=== PATIENT | female | born 1975 | race Caucasian/White ===

== ENCOUNTER 2016-04-16 17:29 | Emergency (ER) | payer MEDICAID ==
--- NOTE | 2016-04-16 17:47 | ER Document Report ---
ED Medical Screen (RME) - General Stated Complaint: MED REFILL Notes: Patient presents for medication refill of Dilantin she does have an appointment with the attending on the TRAVEL OUTSIDE OF THE [place] 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
--- NOTE | 2016-04-16 18:22 | ER Document Report ---
ED General - General Chief Complaint: Medication Refill Stated Complaint: MED REFILL Time seen by provider: 18:17 TRAVEL OUTSIDE OF THE [place] IN LAST 30 DAYS: No - HPI Patient complains to provider of: med refill Onset: Yesterday - pt rqan out of dilantin -- last dose was last night. Next appt at [facility] not until 04/18 - Related Data Allergies/Adverse Reactions: No Known Allergies Allergy (Verified 02/13/13 19:30) Past Medical History - General Information source: Patient - Social History Smoking Status: Unknown if Ever Smoked Cigarette use (# per day): No Chew tobacco use (# tins/day): No Smoking Education Provided: No Family History: Reviewed & Not Pertinent Patient has suicidal ideation: No Patient has homicidal ideation: No Neurological Medical History: Reports: Hx Cerebrovascular Accident - Carotid Artery Blockage- Dec 2014 Renal/ Medical History: Denies: Hx Peritoneal Dialysis Musculoskeltal Medical History: Reports Hx Musculoskeletal Deformity - 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 Psychiatric Medical History: Reports: Hx Anxiety Past Surgical History: Reports: Hx Cholecystectomy - Immunizations Immunizations up to date: Yes Hx Diphtheria, Pertussis, Tetanus Vaccination: Yes Review of Systems - Review of Systems Constitutional: No symptoms reported EENT: No symptoms reported Cardiovascular: No symptoms reported Respiratory: No symptoms reported Gastrointestinal: No symptoms reported Musculoskeletal: No symptoms reported Skin: No symptoms reported -: Yes All other systems reviewed and negative Physical Exam - Vital signs Vitals: Temp Pulse Resp BP Pulse Ox 98.4 F 99 18 129/83 H 99 04/16/16 17:44 04/16/16 17:44 04/16/16 17:44 04/16/16 17:44 04/16/16 17:44 - General General appearance: Appears well In distress: None - Respiratory Respiratory status: No respiratory distress Breath sounds: Normal - Cardiovascular Rhythm: Regular Heart sounds: Normal auscultation - Neurological Neuro grossly intact: Yes Cognition: Normal Orientation: AAOx4 Speech: Normal Motor strength normal: LUE, RUE, LLE, RLE Sensory: Normal Course - Vital Signs Vital signs: Temp Pulse Resp BP Pulse Ox 98.4 F 99 18 129/83 H 99 04/16/16 17:44 04/16/16 17:44 04/16/16 17:44 04/16/16 17:44 04/16/16 17:44 Discharge - Discharge Clinical Impression: Medication refill Condition: Stable Disposition: HOME, SELF-CARE Additional Instructions: reest, take meds as prescribed, return if worse Prescriptions: Phenytoin Sodium Extended [Dilantin 100 mg Capsule.er] 100 mg PO Q8 #90 capsule Referrals: ELIDA GODOY MD [ACTIVE STAFF] - Follow up as needed
[2016-04-16 19:11] VITALS: BP 132/78
== END 2016-04-16 19:11 | disposition home or self-care (01) ==
LOC: ER 17:29
DX: Z76.0 Encounter for issue of repeat prescription (principal); F41.9 Anxiety disorder, unspecified; Z86.73 Personal history of transient ischemic attack (TIA), and cerebral infarction without residual deficits
CPT/HCPCS: 99281

== ENCOUNTER 2016-06-05 15:28 | Inpatient (IN) | payer MEDICAID ==
--- NOTE | 2016-06-05 16:15 | ER Document Report ---
ED Medical Screen (RME) - General Stated Complaint: BLOOD ISSUE Time seen by provider: 16:13 Mode of Arrival: Wheelchair Information source: Patient Notes: 41-year-old female with a history of CVA came to the emergency room because of a hemoglobin that was drawn at her primary care doctor Dr. Tam on 06-02. Her hemoglobin was 5.5. She has been having lightheadedness for several weeks. She has severe menorrhagia which has caused anemia in the past and she also takes eloquis.. I have greeted and performed a rapid initial assessment of this patient. A comprehensive ED assessment, evaluation of the patient, analysis of test results , and completion of the medical decision making process will be conducted by additional ED providers. TRAVEL OUTSIDE OF THE [place] 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
[2016-06-05] MEDS ORDERED: NORMAL SALINE 250 ML IV PRN ×3 (16:16→18:46)
[2016-06-05 16:48] LABS: HEMATOCRIT 20.1 % (36.0-47.0); HGB HCT DIFFERENCE -2.4; MEAN CORPUSCULAR HGB CONC 29.3 g/dL (32.0-36.0); MEAN CORPUSCULAR VOLUME 75 fl (80-97); RED BLOOD COUNT 2.67 10^6/uL (3.72-5.28); RED CELL DISTRIBUTION WIDTH 20.5 % (11.5-14.0); WHITE BLOOD COUNT 6.9 10^3/uL (4.0-10.5)
[2016-06-05 17:24] LABS: BASOPHILS % (MANUAL) 0 % (0-2); EOSINOPHILS % (MANUAL) 3 % (0-6); LYMPHOCYTES % (MANUAL) 26 % (13-45); NUCLEATED RED BLOOD CELLS 1 /100 WBC (0); TOTAL CELLS COUNTED 100
[2016-06-05 17:25] LABS: ANISOCYTOSIS 2+; HYPOCHROMASIA 3+; MICROCYTOSIS 2+
[2016-06-05 17:26] LABS: OVALOCYTES SLIGHT; POIKILOCYTOSIS SLIGHT; POLYCHROMASIA SLIGHT; TEAR DROP CELLS SLIGHT
[2016-06-05 17:29] LABS: HEMOGLOBIN 5.9 g/dL (12.0-15.5)
--- NOTE | 2016-06-05 18:30 | ER Document Report ---
ED General - General Chief Complaint: Anemia Stated Complaint: BLOOD ISSUE Mode of Arrival: Wheelchair Information source: Patient Notes: 41-year-old female on Eliquis presents with complaints of weakness requiring blood. Patient notes that she has been having heavy menses twice a month for 1 week each. Patient saw her primary care physician who noted that she was anemic and sent her in for transfusion TRAVEL OUTSIDE OF THE [place] IN LAST 30 DAYS: No - HPI Onset: Other Onset/Duration: Persistent Quality of pain: No pain Severity: Moderate Pain Level: Denies Associated symptoms: Weakness Exacerbated by: Denies Relieved by: Denies Similar symptoms previously: Yes Recently seen / treated by doctor: Yes - Related Data Allergies/Adverse Reactions: No Known Allergies Allergy (Verified 02/13/13 19:30) Past Medical History - General Information source: Patient - Social History Smoking Status: Current Every Day Smoker Cigarette use (# per day): Yes Chew tobacco use (# tins/day): No Smoking Education Provided: No Frequency of alcohol use: Social Drug Abuse: None Family History: Reviewed & Not Pertinent Patient has suicidal ideation: No Patient has homicidal ideation: No Neurological Medical History: Reports: Hx Cerebrovascular Accident - Carotid Artery Blockage- Dec 2014 Renal/ Medical History: Denies: Hx Peritoneal Dialysis Musculoskeltal Medical History: Reports Hx Musculoskeletal Deformity - 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 Denies recent illness. EENT: Denies eye, ear, throat, or mouth pain or symptoms. Denies nasal or sinus congestion or discharge. Denies throat, tongue, or mouth swelling or difficulty swallowing. CARDIOVASCULAR: Denies chest pain. Denies palpitations or racing or irregular heart beat. Denies ankle edema. RESPIRATORY: Denies cough, cold, or chest congestion. Denies shortness of breath, difficulty breathing, or wheezing. GASTROINTESTINAL: Denies abdominal pain or distention. Denies nausea, vomiting , or diarrhea. Denies blood in vomitus, stools, or per rectum. Denies black, tarry stools. Denies constipation. GENITOURINARY: Denies difficulty urinating, painful urination, burning, frequency, blood in urine, or discharge. FEMALE GENITOURINARY: Admits to having vaginal bleeding MUSCULOSKELETAL: Denies back or neck pain or stiffness. Denies joint pain or swelling. SKIN: Denies rash, lesions or sores. HEMATOLOGIC : Denies easy bruising or bleeding. LYMPHATIC: Denies swollen, enlarged glands. NEUROLOGICAL: Admits to weakness PSYCHIATRIC: Denies anxiety or stress. Denies depression, suicidal ideation, or homicidal ideation. ALL OTHER SYSTEMS REVIEWED AND NEGATIVE. Dictation was performed using [employer] voice recognition software PHYSICAL EXAMINATION: GENERAL: Well-appearing, well-nourished and in no acute distress. HEAD: Atraumatic, normocephalic. EYES: Pupils equal round and reactive to light, extraocular movements intact, conjunctiva are normal. ENT: Nares patent, oropharynx clear without exudates. Moist mucous membranes. NECK: Normal range of motion, supple without lymphadenopathy LUNGS: Breath sounds clear to auscultation bilaterally and equal. No wheezes rales or rhonchi. HEART: Regular rate and rhythm without murmurs ABDOMEN: Soft, nontender, nondistended abdomen. No guarding, no rebound. No masses appreciated. Female : deferred currently not bleeding Musculoskeletal: Normal range of motion, no pitting or edema. No cyanosis. NEUROLOGICAL: Cranial nerves grossly intact. Normal speech, normal gait. Normal sensory, motor exams PSYCH: Normal mood, normal affect. SKIN: Warm, Dry, normal turgor, no rashes or lesions noted. Physical Exam - Vital signs Vitals: Temp Pulse Resp BP Pulse Ox 98.0 F 92 20 108/52 L 100 06/05/16 15:56 06/05/16 15:56 06/05/16 15:56 06/05/16 15:56 06/05/16 15:56 Course - Re-evaluation Re-evalutation: 06/05/16 19:28 Patient's hemoglobin is 5.9, blood has been ordered for transfusion. Patient will be admitted to hospitalist service - Vital Signs Vital signs: Temp Pulse Resp BP Pulse Ox 98.6 F 87 16 109/66 100 06/05/16 19:19 06/05/16 19:19 06/05/16 19:19 06/05/16 19:19 06/05/16 19:19 - Laboratory Result Diagrams: 06/05/16 16:25 06/05/16 16:25 Laboratory results interpreted by me: 06/05/16 06/05/16 06/05/16 16:25 16:25 16:25 RBC 2.67 L Hgb 5.9 L Hct 20.1 L MCV 75 L MCH 22.0 L MCHC 29.3 L RDW 20.5 H Metamyelocytes % 1 H Retic Count (auto) Absolute Retic Chloride 108 H AST 11 L Crossmatch See Detail 06/05/16 16:25 RBC Hgb Hct MCV MCH MCHC RDW Metamyelocytes % Retic Count (auto) 5.38 H Absolute Retic 0.142 H Chloride AST Crossmatch Critical Care Note - Critical Care Note Total time excluding time spent on procedures (mins): 35 Comments: 35 minutes of critical care time spent in direct contact evaluating and reevaluating the patient, treating symptoms, reviewing labs and studies and speaking with family and consultants excluding any procedures Discharge - Discharge Clinical Impression: History of heavy vaginal bleeding Anemia Qualifiers: Anemia type: unspecified type Qualified Code(s): D64.9 - Anemia, unspecified Condition: Stable Disposition: ADMITTED OBSERVATION Admitting Provider: Hospitalist Unit Admitted: Telemetry
[2016-06-05] MEDS ORDERED: NORMAL SALINE 1000 ML 1,000 ML IV PRN (18:32)
[2016-06-05] MEDS ORDERED: ACETAMINOPHEN 325 MG TABLET PO PRN (18:32)
[2016-06-05] MEDS ORDERED: ONDANSETRON HCL INJ/PF 4 MG/2 ML SDV IV PRN (18:32)
[2016-06-05 19:00] LABS: ALANINE AMINOTRANSFERASE 12 U/L (9-52); ALBUMIN 3.9 g/dL (3.5-5.0); ALKALINE PHOSPHATASE 111 U/L (38-126); ANION GAP 12 (5-19); ASPARTATE AMINO TRANSFERASE 11 U/L (14-36); BILIRUBIN,TOTAL 0.3 mg/dL (0.2-1.3); BLOOD UREA NITROGEN 9 mg/dL (7-20); CALCIUM 9.3 mg/dL (8.4-10.2); CARBON DIOXIDE 22 mmol/L (22-30); CHLORIDE 108 mmol/L (98-107); CREATININE RESULT 0.77 mg/dL (0.52-1.25); GLUCOSE 85 mg/dL (75-110); POTASSIUM 4.5 mmol/L (3.6-5.0); SODIUM 142.3 mmol/L (137-145); TOTAL PROTEIN 7.1 g/dL (6.3-8.2)
[2016-06-05] MEDS ORDERED: CLONAZEPAM 1 MG TABLET PO PRN (19:31)
[2016-06-05] MEDS ORDERED: HYDROCODONE/ACETAMINOPHEN 5-325 MG TABLET PO PRN (19:33)
[2016-06-05] MEDS ORDERED: APIXABAN 5 MG TABLET PO SCH (19:45)
--- NOTE | 2016-06-05 19:49 | PDOC H&P ---
History of Present Illness Admission Date/PCP: 06/05/16 18:32 MARTINA HINES MD History of Present Illness: KEVIN RUCKER is a 41 year old female with past medical history of CVA, seizure disorder following CVA, alcoholism on Eliquis who presents to the emergency department with abnormal labs from her primary care office. Patient was found to have a hemoglobin of 5.9. She reports that since being on Eliquis that she has a menstrual cycle every 2 weeks. Patient has significant vaginal bleeding. She denies any hematochezia or melena. She denies any hematemesis. Patient denies any chest pain, shortness of breath. She is referred to hospital service for evaluation of anemia. Past Medical History Pulmonary Medical History: Reports: Chronic Obstructive Pulmonary Disease (COPD) Neurological Medical History: Reports: Ischemic CVA, Migraine Psychiatric Medical History: Reports: Alcohol Dependency Past Surgical History Past Surgical History: Reports: Cholecystectomy Social History Smoking Status: Current Every Day Smoker Cigarettes Packs Per Day: 1 Frequency of Alcohol Use: Heavy Hx Recreational Drug Use: No Hx Prescription Drug Abuse: No - Advance Directive Resuscitation Status: Full Code Family History Family History: Reviewed & Not Pertinent Parental Family History Reviewed: Yes Children Family History Reviewed: Yes Sibling(s) Family History Reviewed.: Yes Medication/Allergy Home Medications: Phenytoin Sodium Extended [Dilantin 100 mg Capsule.er] 300 mg PO QHS #45 capsule 04/01/16 Phenytoin Sodium Extended [Dilantin 100 mg Capsule.er] 100 mg PO Q8 #90 capsule 04/16/16 Allergies/Adverse Reactions: No Known Allergies Allergy (Verified 02/13/13 19:30) Review of Systems Constitutional: PRESENT: fatigue. ABSENT: chills, fever(s), headache(s), weight gain, weight loss Eyes: ABSENT: visual disturbances Ears: ABSENT: hearing changes Cardiovascular: ABSENT: chest pain, dyspnea on exertion, edema, orthropnea, palpitations Respiratory: ABSENT: cough, hemoptysis Gastrointestinal: ABSENT: abdominal pain, constipation, diarrhea, hematemesis, hematochezia, nausea, vomiting Genitourinary: ABSENT: dysuria, hematuria Musculoskeletal: ABSENT: joint swelling Integumentary: ABSENT: rash, wounds Neurological: ABSENT: abnormal gait, abnormal speech, confusion, dizziness, focal weakness, syncope Psychiatric: ABSENT: anxiety, depression, homidical ideation, suicidal ideation Endocrine: PRESENT: menstrual abnormalities. ABSENT: cold intolerance, heat intolerance, polydipsia, polyuria Hematologic/Lymphatic: ABSENT: easy bleeding, easy bruising Physical Exam Vital Signs: Temp Pulse Resp BP Pulse Ox 98.6 F 87 16 109/66 100 06/05/16 19:19 06/05/16 19:19 06/05/16 19:19 06/05/16 19:19 06/05/16 19:19 Intake & Output 06/04/16 06/05/16 06/06/16 06:59 06:59 06:59 Intake Total 0 Balance 0 General appearance: PRESENT: no acute distress, obese, well-developed Head exam: PRESENT: atraumatic, normocephalic Eye exam: PRESENT: conjunctiva pink, EOMI, PERRLA. ABSENT: scleral icterus Ear exam: PRESENT: normal external ear exam Mouth exam: PRESENT: moist, tongue midline Neck exam: ABSENT: JVD, lymphadenopathy, thyromegaly, tracheal deviation Respiratory exam: PRESENT: clear to auscultation teja, prolonged expiratory phas , symmetrical, unlabored. ABSENT: crackles, rales, rhonchi, tachypnea, wheezes Cardiovascular exam: PRESENT: RRR, +S1, +S2, tachycardia. ABSENT: diastolic murmur, gallop, rubs, systolic murmur Pulses: PRESENT: normal dorsalis pedis pul Vascular exam: PRESENT: normal capillary refill GI/Abdominal exam: PRESENT: normal bowel sounds, soft. ABSENT: distended, firm , guarding, mass, organolmegaly, rebound, rigid, tenderness Rectal exam: PRESENT: deferred Extremities exam: PRESENT: full ROM. ABSENT: calf tenderness, clubbing, pedal edema Neurological exam: PRESENT: alert, awake, oriented to person, oriented to place , oriented to time, oriented to situation, motor sensory deficit - Left-sided hemiplegia,. ABSENT: CN II-XII grossly intact - Left facial droop, left peripheral vision loss Psychiatric exam: PRESENT: appropriate affect, normal mood. ABSENT: homicidal ideation, suicidal ideation Skin exam: PRESENT: dry, intact, pallor, warm. ABSENT: cyanosis, rash Results Laboratory Results: 06/05/16 06/05/16 16:25 16:25 Hgb 5.9 L MCV 75 L Creatinine 0.77 Status: Imported from PACS Assessment & Plan - Diagnosis (1) Anemia Qualifiers: Other causes of anemia: acute posthemorrhagic Qualified Code(s): D64.9 - Anemia, unspecified Is this a current diagnosis for this admission?: YesPlan: Patient with anemia likely secondary to chronic blood loss from her menstrual cycle on blood thinner. Will obtain iron studies and TSH. Will transfuse patient 4 units of packed red blood cells. Continue to monitor. (2) Perimenopausal menorrhagia Is this a current diagnosis for this admission?: YesPlan: Patient reports having 2 menstrual cycles monthly each lasting a week. Patient has heavy flow secondary to current Eliquis use. Have consulted Dr. Alba [facility]. Will check TSH. (3) Hyperlipidemia Qualifiers: Hyperlipidemia type: unspecified Qualified Code(s): E78.5 - Hyperlipidemia, unspecified Is this a current diagnosis for this admission?: YesPlan: Continue Lipitor (4) Tobacco abuse Is this a current diagnosis for this admission?: YesPlan: Patient has been counseled for more than 2 minutes on smoking cessation. Nicotine patch when necessary (5) Seizure disorder Is this a current diagnosis for this admission?: YesPlan: Place patient on Dilantin 300 mg by mouth daily at bedtime. She reports no current seizures. Last seizure was on New Year's Tamiko. (6) Cerebral atherosclerosis Is this a current diagnosis for this admission?: YesPlan: Patient has residual left-sided weakness. Patient is currently on Lipitor, Eliquis. - Time Time Spent: 50 to 70 Minutes Medications reviewed and adjusted accordingly: Yes Anticipated discharge: Home Within: within 48 hours - Inpatient Certification Based on my medical assessment, after consideration of the patient's comorbidities, presenting symptoms, or acuity I expect that the services needed warrant INPATIENT care.: Yes I certify that my determination is in accordance with my understanding of Medicare's requirements for reasonable and necessary INPATIENT services [42 CFR 412.3e].: Yes Medical Necessity: Need Close Monitoring Due to Risk of Patient Decompensation, Risk of Complication if Not Cared For in Hospital Post Hospital Care: D/C Lab Asst Documentation
[2016-06-05 20:27] LABS: FOLATE 4.91 ng/mL (>2.76)
[2016-06-05] MEDS ORDERED: NICOTINE 21 MG/24 HR PATCH.TD24 TD ONE (20:30)
[2016-06-05 21:00] LABS: PARTIAL THROMBOPLASTIN TIME 24.9 SEC (23.5-35.8); PROTHROMBIN TIME 13.1 SEC (11.4-15.4)
[2016-06-05] MEDS ORDERED: PHENYTOIN SODIUM EXTENDED 100 MG CAPSULE PO SCH (22:00)
[2016-06-05] MEDS ORDERED: ATORVASTATIN CALCIUM 40 MG TABLET PO SCH (22:00)
[2016-06-05] MEDS ORDERED: LORAZEPAM INJ 2 MG/1 ML VIAL IV PRN (22:46)
[2016-06-05] MEDS ORDERED: THIAMINE HCL 100 MG, FOLIC ACID 1 MG in NORMAL SALINE 50 ML IV SCH (23:00)
[2016-06-05] MEDS ORDERED: THIAMINE HCL INJ 200 MG/2 ML VIAL ONE (23:41)
[2016-06-05] MEDS ORDERED: FOLIC ACID INJ 5 MG/1 ML 10 ML VIAL ONE (23:41)
[2016-06-06] MEDS ORDERED: (PENDING PHARMACY ID) (Gabapentin [Neurontin] 1,800 MG) PO SCH (01:45)
[2016-06-06] MEDS ORDERED: INFLUENZA ADLT QUAD (36MOS+) 2016-17 VAC 0.5 ML SYR IM PRN (02:51)
[2016-06-06] MEDS ORDERED: LANSOPRAZOLE 15 MG TAB.RAP.DR PO SCH (06:00)
[2016-06-06] MEDS ORDERED: GABAPENTIN 300 MG CAPSULE PO ONE (07:15)
--- NOTE | 2016-06-06 07:29 | PDOC CONSULTATION ---
Consultation Consult Date: 06/05/16 Attending physician:: TAMIKO BLANKENSHIP Consult reason:: Menometrorrhagia, anemia of chronic blood loss History of Present Illness Admission Date/PCP: 06/05/16 18:32 MARTINA HINES MD Patient complains of: fatigue, abnormal labs in PCM office History of Present Illness: KEVIN RUCKER is a 41 year old female (H/o x 3, SAB x 1, EAB x 1) with past medical history of CVA (12/2014), seizure disorder following CVA, carotid artery blockage (pt reports that she is supposed to have a stent but they could not do it yet) and alcoholism on Eliquis who presents to the emergency department with abnormal labs from her primary care office. Patient was found to have a hemoglobin of 5.9 and was admitted to the Hospitalist service and initiated on transfusion of 4 units of PRBCs. She reports that since being on Eliquis in 2014 (was on warfarin and changed to Eliquis) that she has a menstrual cycle every 2 weeks with flooding and clots. Patient has significant vaginal bleeding. She denies any hematochezia or melena. She denies any hematemesis. Patient denies any chest pain, shortness of breath. She was seen approx 8-10 months ago for consultation with Dr. hirsch's office for the same but has not followed up with that office and is unaware of an established plan for her JAMMER HOOKER issues. She is currently sexually active with one partner and does not use condoms. He does not have a vasectomy and she is not using anything for contraception. She reoprts h/o possible fibroids in the past. REviewed with pt recommendations for contraception as she has mutiple comorbidities that would cause her to be very high risk. Pt given office contact info to f/u in the office. Past Medical History Pulmonary Medical History: Reports: Chronic Obstructive Pulmonary Disease (COPD) Neurological Medical History: Reports: Ischemic CVA, Migraine Psychiatric Medical History: Reports: Alcohol Dependency Social History Smoking Status: Current Every Day Smoker Cigarettes Packs Per Day: 1 Frequency of Alcohol Use: Heavy Hx Recreational Drug Use: No Hx Prescription Drug Abuse: No - Advance Directive Resuscitation Status: Full Code Family History Family History: Reviewed & Not Pertinent Parental Family History Reviewed: No Children Family History Reviewed: NA Sibling(s) Family History Reviewed.: NA Medication/Allergy Home Medications: Phenytoin Sodium Extended [Dilantin 100 mg Capsule.er] 300 mg PO QHS #45 capsule 04/01/16 Apixaban [Eliquis 5 mg Tablet] 5 mg PO Q12 06/05/16 Atorvastatin Calcium [Lipitor 80 mg Tablet] 80 mg PO QHS 06/05/16 Clonazepam [Klonopin] 0.5 mg PO Q12HP PRN 06/05/16 Ferrous Sulfate [Iron] 325 mg PO TID 06/05/16 Fluoxetine HCl [Prozac 20 mg Capsule] 20 mg PO DAILY 06/05/16 Gabapentin [Neurontin] 1,800 mg PO QHS 06/05/16 Gabapentin [Neurontin] 600 mg PO QAM 06/05/16 Hydrocodone/Acetaminophen [[place] 5-325 mg Tablet] 1 tab PO Q6HP PRN 06/05/16 Allergies/Adverse Reactions: No Known Allergies Allergy (Verified 02/13/13 19:30) Review of Systems Constitutional: ABSENT: chills, fever(s), headache(s), weight gain, weight loss Cardiovascular: ABSENT: chest pain, dyspnea on exertion, edema, orthropnea, palpitations Gastrointestinal: ABSENT: abdominal pain, constipation, diarrhea, hematemesis, hematochezia, nausea, vomiting Genitourinary: ABSENT: dysuria, hematuria Musculoskeletal: ABSENT: joint swelling Integumentary: ABSENT: rash, wounds Neurological: ABSENT: abnormal gait, abnormal speech, confusion, dizziness, focal weakness, syncope Psychiatric: ABSENT: anxiety, depression, homidical ideation, suicidal ideation Endocrine: ABSENT: cold intolerance, heat intolerance, polydipsia, polyuria Hematologic/Lymphatic: ABSENT: easy bleeding, easy bruising Physical Exam - Physical Exam Vital Signs: Temp Pulse Resp BP Pulse Ox 98.5 F 94 16 113/80 100 06/05/16 22:49 06/05/16 22:49 06/05/16 22:49 06/05/16 22:49 06/05/16 22:49 Intake & Output 06/04/16 06/05/16 06/06/16 06:59 06:59 06:59 Intake Total 300 Balance 300 General appearance: PRESENT: no acute distress, well-developed, well-nourished Head exam: PRESENT: atraumatic, normocephalic Respiratory exam: PRESENT: clear to auscultation teja, symmetrical, unlabored Cardiovascular exam: PRESENT: RRR. ABSENT: diastolic murmur, rubs, systolic murmur Pulses: PRESENT: normal dorsalis pedis pul, +2 pedal pulses bilateral GI/Abdominal exam: PRESENT: normal bowel sounds, soft. ABSENT: distended, guarding, mass, organolmegaly, rebound, tenderness Rectal exam: PRESENT: deferred Extremities exam: PRESENT: full ROM. ABSENT: calf tenderness, clubbing, pedal edema Neurological exam: PRESENT: alert, awake, oriented to person, oriented to place , oriented to time, oriented to situation, CN II-XII grossly intact. ABSENT: motor sensory deficit Psychiatric exam: PRESENT: appropriate affect, normal mood. ABSENT: homicidal ideation, suicidal ideation Skin exam: PRESENT: dry, intact, warm. ABSENT: cyanosis, rash Assessment & Plan - Diagnosis (1) Anemia Qualifiers: Other causes of anemia: acute posthemorrhagic Qualified Code(s): D64.9 - Anemia, unspecified Is this a current diagnosis for this admission?: YesPlan: Transfusion of PRBCs x 4. Pt already infusion. Anemia now acutely managed by Hospitalist (2) Perimenopausal menorrhagia Is this a current diagnosis for this admission?: YesPlan: Pt with menomentrorhagia which is compounded by [facility] due to her comorbidities. Reviewed options with pt: Medical management with progesterone only (DepoProvera, Progesterone IUD) or surgical management with endometrial ablation or hysterectomy. Reviewed with pt that since she also needs contraception progesterone options above may be more helpful for her. Alternatively, with an ablation which may bridge her to menopause she would need ESSURE or L/S BTL. REviewed with pt would prefer to avoid L/S with her being on blood thinner. Pt also needs US of the pelvis since she reports that she had fibroids and uterine polyps in the past. Depending on the size and location of the uterine fibroids it may preclude being able to perform the ablation. Pelvis US ordered Recommendations reviewed with Dr. Vazquez. Pt declined pelvic exam at this time which is fine since she is not currently having vaginal bleeding. - Time Time Spent: 30 to 50 Minutes Medications reviewed and adjusted accordingly: Yes Anticipated discharge: Home Within: within 48 hours - Inpatient Certification Based on my medical assessment, after consideration of the patient's comorbidities, presenting symptoms, or acuity I expect that the services needed warrant INPATIENT care.: Yes I certify that my determination is in accordance with my understanding of Medicare's requirements for reasonable and necessary INPATIENT services [42 CFR 412.3e].: Yes Medical Necessity: Significant Comorbidiites Make Outpatient Treatment Too Risky , Need For IV Fluids Post Hospital Care: D/C Linen Checker Documentation
[2016-06-06] MEDS ORDERED: FERROUS SULFATE 325 MG TABLET PO SCH (09:00)
[2016-06-06 09:04] LABS: ABSOLUTE BASOPHILS # (AUTO) 0.1 10^3/uL (0.0-0.2); ABSOLUTE EOSINOPHILS # (AUTO) 0.2 10^3/uL (0.0-0.6); ABSOLUTE LYMPHOCYTES (AUTO) 1.4 10^3/uL (0.5-4.7); ABSOLUTE MONOCYTES (AUTO) 0.4 10^3/uL (0.1-1.4); ABSOLUTE NEUT (AUTO) 6.2 10^3/uL (1.7-8.2); BASOPHILS % (AUTO) 0.6 % (0-2); EOSINOPHILS % (AUTO) 2.8 % (0-6); HEMATOCRIT 36.2 % (36.0-47.0); HGB HCT DIFFERENCE -0.8; LYMPHOCYTES % (AUTO) 16.6 % (13-45); MEAN CORPUSCULAR HEMOGLOBIN 26.3 pg (27.0-33.4); MEAN CORPUSCULAR HGB CONC 32.7 g/dL (32.0-36.0); MONOCYTES % (AUTO) 5.1 % (3-13); RED BLOOD COUNT 4.49 10^6/uL (3.72-5.28); RED CELL DISTRIBUTION WIDTH 20.5 % (11.5-14.0); SEGMENTED NEUTROPHILS % (AUTO) 74.9 % (42-78); WHITE BLOOD COUNT 8.3 10^3/uL (4.0-10.5)
[2016-06-06 09:13] LABS: HEMOGLOBIN 11.8 g/dL (12.0-15.5); MEAN CORPUSCULAR VOLUME 81 fl (80-97)
[2016-06-06] MEDS ORDERED: NICOTINE 21 MG/24 HR PATCH.TD24 TD SCH (10:00)
[2016-06-06] MEDS ORDERED: DOCUSATE SODIUM 100 MG CAPSULE PO SCH (10:00)
--- NOTE | 2016-06-06 12:04 | PDOC DISCHARGE SUMMARY ---
General - Admit/Disc Date/PCP Admission Date/Primary Care Provider: 06/05/16 18:32 MARTINA HINES MD Discharge Date: 06/06/16 - Discharge Diagnosis (1) Anemia Is this a current diagnosis for this admission?: Yes (2) Menorrhagia Is this a current diagnosis for this admission?: Yes (3) Uterine fibroid Is this a current diagnosis for this admission?: Yes (4) Alcohol abuse Is this a current diagnosis for this admission?: Yes (5) Cerebral atherosclerosis Is this a current diagnosis for this admission?: Yes (6) Seizure disorder Is this a current diagnosis for this admission?: Yes (7) Tobacco abuse Is this a current diagnosis for this admission?: Yes (8) Cerebral infarction Is this a current diagnosis for this admission?: Yes - Additional Information Resuscitation Status: Full Code Discharge Diet: Cardiac Discharge Activity: Activity As Tolerated Home Medications: Phenytoin Sodium Extended [Dilantin 100 mg Capsule.er] 300 mg PO QHS #45 capsule 04/01/16 Atorvastatin Calcium [Lipitor 80 mg Tablet] 80 mg PO QHS 06/05/16 Clonazepam [Klonopin] 0.5 mg PO Q12HP PRN 06/05/16 Fluoxetine HCl [Prozac 20 mg Capsule] 20 mg PO DAILY 06/05/16 Gabapentin [Neurontin] 1,800 mg PO QHS 06/05/16 Gabapentin [Neurontin] 600 mg PO QAM 06/05/16 Hydrocodone/Acetaminophen [[place] 5-325 mg Tablet] 1 tab PO Q6HP PRN 06/05/16 Aspirin [Adult Low Dose Aspirin EC] 81 mg PO DAILY #30 tablet.dr 06/06/16 Docusate Sodium [Colace 100 mg Capsule] 100 mg PO BID #60 capsule 06/06/16 Ferrous Sulfate [Iron] 325 mg PO BID #60 tablet 06/06/16 Gabapentin [Neurontin 300 mg Capsule] 600 mg PO QAM capsule 06/06/16 Nicotine [Nicoderm 21 mg/24 Hr Transderm Patch] 1 each TD DAILY #7 patch.td24 Phenytoin Sodium Extended [Dilantin 100 mg Capsule.er] 300 mg PO QHS capsule History of Present Illness Patient complains of: Anemia History of Present Illness: KEVIN RUCKER is a 41 year old female with past medical history of CVA, seizure disorder following CVA, alcoholism on Eliquis who presents to the emergency department with abnormal labs from her primary care office. Patient was found to have a hemoglobin of 5.9. She reports that since being on Eliquis that she has a menstrual cycle every 2 weeks. Patient has significant vaginal bleeding. She denies any hematochezia or melena. She denies any hematemesis. Patient denies any chest pain, shortness of breath. She is referred to hospital service for evaluation of anemia. Hospital Course Hospital Course: Patient was admitted for acute blood loss anemia associated with menorrhagia. She was found to have uterine fibroid. She already has an appointment on [address] Araujo [facility] for evaluation. She was seen by [facility] while in the hospital as well. Multiple options were recommended. Patient required transfusion 4 units PRBC and posttransfusion hemoglobin is stable at 11.8. She is to resume taking iron supplementation as previous he recommended. Patient has a history of right MCA infarct with previous imaging showing complete occlusion of right MCA. This occurred in 2014 and at that time she was transferred to [facility]. She was initially discharged from [facility] on Coumadin but has since been transitioned to Eliquis. She continues to smoke. She is strongly encouraged to discontinue smoking. She will be placed on aspirin 81 mg daily. She is to continue Lipitor 80 mg daily. After discussion with patient's primary care provider Dr. Corona she will have to be taken off of Eliquis for now given menorrhagia requiring transfusion 4 units PRBC. Patient has been counseled extensively on smoking cessation. Physical Exam Vital Signs: Temp Pulse Resp BP Pulse Ox 98.1 F 71 16 131/85 H 99 06/06/16 08:03 06/06/16 07:50 06/06/16 11:39 06/06/16 11:39 06/06/16 11:39 Intake & Output 06/05/16 06/06/16 06/07/16 06:59 06:59 06:59 Intake Total 1280 480 Balance 1280 480 Weight 70.1 kg Results Laboratory Results: 06/06/16 08:46 06/06/16 08:46 WBC 8.3 RBC 4.49 Hgb 11.8 L D Hct 36.2 MCV 81 D MCH 26.3 L MCHC 32.7 RDW 20.5 H Plt Count 275 Seg Neutrophils % 74.9 Lymphocytes % 16.6 Monocytes % 5.1 Eosinophils % 2.8 Basophils % 0.6 Absolute Neutrophils 6.2 Absolute Lymphocytes 1.4 Absolute Monocytes 0.4 Absolute Eosinophils 0.2 Absolute Basophils 0.1 Labs- All tests 24 hr 06/05/16 06/05/16 06/05/16 16:25 16:25 16:25 WBC 6.9 RBC 2.67 L Hgb 5.9 L Hct 20.1 L MCV 75 L MCH 22.0 L MCHC 29.3 L RDW 20.5 H Plt Count 355 Total Counted 100 Seg Neutrophils % Not Reportable Seg Neuts % (Manual) 67 Lymphocytes % Not Reportable Lymphocytes % (Manual) 26 Monocytes % Not Reportable Monocytes % (Manual) 3 Eosinophils % Not Reportable Eosinophils % (Manual) 3 Basophils % Not Reportable Basophils % (Manual) 0 Metamyelocytes % 1 H Absolute Neutrophils Not Reportable Abs Neuts (Manual) 4.7 Absolute Lymphocytes Not Reportable Abs Lymphs (Manual) 1.8 Absolute Monocytes Not Reportable Abs Monocytes (Manual) 0.2 Absolute Eosinophils Not Reportable Absolute Eos (Manual) 0.2 Absolute Basophils Not Reportable Abs Basophils (Manual) 0.0 Nucleated RBCs 1 Platelet Comment ADEQUATE Polychromasia SLIGHT Hypochromasia 3+ Poikilocytosis SLIGHT Anisocytosis 2+ Microcytosis 2+ Tear Drop Cells SLIGHT Ovalocytes SLIGHT Retic Count (auto) Absolute Retic PT INR APTT Sodium 142.3 Potassium 4.5 Chloride 108 H Carbon Dioxide 22 Anion Gap 12 BUN 9 Creatinine 0.77 Est GFR ( Amer) > 60 Est GFR (Non-Af Amer) > 60 Glucose 85 Calcium 9.3 Iron TIBC % Saturation Ferritin Total Bilirubin 0.3 Direct Bilirubin 0.0 AST 11 L ALT 12 Alkaline Phosphatase 111 Total Protein 7.1 Albumin 3.9 Vitamin B12 Folate TSH C. difficile Tox (PCR) Blood Type A POSITIVE Antibody Screen NEGATIVE Crossmatch See Detail 06/05/16 06/05/16 06/05/16 16:25 16:25 16:41 WBC RBC Hgb Hct MCV MCH MCHC RDW Plt Count Total Counted Seg Neutrophils % Seg Neuts % (Manual) Lymphocytes % Lymphocytes % (Manual) Monocytes % Monocytes % (Manual) Eosinophils % Eosinophils % (Manual) Basophils % Basophils % (Manual) Metamyelocytes % Absolute Neutrophils Abs Neuts (Manual) Absolute Lymphocytes Abs Lymphs (Manual) Absolute Monocytes Abs Monocytes (Manual) Absolute Eosinophils Absolute Eos (Manual) Absolute Basophils Abs Basophils (Manual) Nucleated RBCs Platelet Comment Polychromasia Hypochromasia Poikilocytosis Anisocytosis Microcytosis Tear Drop Cells Ovalocytes Retic Count (auto) 5.38 H Absolute Retic 0.142 H PT INR APTT Sodium Potassium Chloride Carbon Dioxide Anion Gap BUN Creatinine Est GFR ( Amer) Est GFR (Non-Af Amer) Glucose Calcium Iron 83.9 TIBC 423 % Saturation 20 Ferritin 113.00 Total Bilirubin Direct Bilirubin AST ALT Alkaline Phosphatase Total Protein Albumin Vitamin B12 233.0 L Folate 4.91 TSH 2.61 C. difficile Tox (PCR) Blood Type Antibody Screen Crossmatch 06/05/16 06/06/16 06/06/16 20:30 06:10 08:46 WBC 8.3 RBC 4.49 Hgb 11.8 L D Hct 36.2 MCV 81 D MCH 26.3 L MCHC 32.7 RDW 20.5 H Plt Count 275 Total Counted Seg Neutrophils % 74.9 Seg Neuts % (Manual) Lymphocytes % 16.6 Lymphocytes % (Manual) Monocytes % 5.1 Monocytes % (Manual) Eosinophils % 2.8 Eosinophils % (Manual) Basophils % 0.6 Basophils % (Manual) Metamyelocytes % Absolute Neutrophils 6.2 Abs Neuts (Manual) Absolute Lymphocytes 1.4 Abs Lymphs (Manual) Absolute Monocytes 0.4 Abs Monocytes (Manual) Absolute Eosinophils 0.2 Absolute Eos (Manual) Absolute Basophils 0.1 Abs Basophils (Manual) Nucleated RBCs Platelet Comment Polychromasia Hypochromasia Poikilocytosis Anisocytosis Microcytosis Tear Drop Cells Ovalocytes Retic Count (auto) Absolute Retic PT 13.1 INR 0.96 APTT 24.9 Sodium Potassium Chloride Carbon Dioxide Anion Gap BUN Creatinine Est GFR ( Amer) Est GFR (Non-Af Amer) Glucose Calcium Iron TIBC % Saturation Ferritin Total Bilirubin Direct Bilirubin AST ALT Alkaline Phosphatase Total Protein Albumin Vitamin B12 Folate TSH C. difficile Tox (PCR) NEGATIVE Blood Type Antibody Screen Crossmatch Impressions: Pelvis Ultrasound 06/05/16 23:20 IMPRESSION: 5 cm posterior uterine fibroid doubled in size since the previous study. Simple cyst in the right ovary 2.4 cm. Qualifiers PATEINT BEING DISCHARGED WITH ANY OF THE FOLLOWING DIAGNOSIS?: No Plan Time Spent: Less than 30 Minutes
[2016-06-06 12:06] VITALS: BP 129/84
[2016-06-06] MEDS ORDERED: THIAMINE HCL 100 MG, FOLIC ACID 1 MG in NORMAL SALINE 50 ML IV SCH (22:00)
[2016-06-06] MEDS ORDERED: GABAPENTIN 300 MG CAPSULE PO SCH (22:00)
[2016-06-07] MEDS ORDERED: GABAPENTIN 300 MG CAPSULE PO SCH (08:00)
--- NOTE | 2016-06-07 09:05 | Physician Advisory Note ---
Physician Advisor ProgressNote .: Pursuant to the plan for [facility], I have reviewed the medical record for this patient. Physician Advisor Statement: Status review: 41yo female with COPD, ongoing tobacco & alcohol dependence, anxiety, past CVA w /resultant Lt hemiparesis/LUE contractures & sz d/o, on Eliquis since, came in for transfusion due to severe anemia w/weakness, with mild intermittent tachycardia. Last Hgb was 9.2 on 04/01/16, now 5.9. Cause of anemia = anemia of acute blood loss from menometrorrhagia due to enlarging fibroid, worsened by Eliquis tx. (+nutritional B12 defic anemia?) Pt not currently bleeding at time of arrival. No hypotension. ADMIN SECRETARY recommended outpt tx, pt not urgently needing procedure this visit and not started on specific Rx for bleeding this visit. Eliquis discontinued, appropriately. Attending documented expectation of <48hr hospital stay. Pt d/c'd the next day , as expected. Appropriate for Outpt Obs stay, but no Obs order. Therefore, since not appropriate for Inpatient stay, will be a "self-denial" case. MD Vu
== END 2016-06-06 12:30 | disposition home or self-care (01) | DRG 812 ==
LOC: ER 15:28 → EH 18:32 → UNDOADMIN 18:45 → EH 18:45 → ICU 06-06 01:59
PROVIDERS: ADMIT Family Medicine; ATTEND Family Medicine
PROC: 30233N1 Transfusion of Nonautologous Red Blood Cells into Peripheral Vein, Percutaneous Approach (ICD-10-PCS; principal; 2016-06-05)
DX: D62 Acute posthemorrhagic anemia (principal); G40.509 Epileptic seizures related to external causes, not intractable, without status epilepticus; N92.4 Excessive bleeding in the premenopausal period; D25.9 Leiomyoma of uterus, unspecified; J44.9 Chronic obstructive pulmonary disease, unspecified; G43.909 Migraine, unspecified, not intractable, without status migrainosus; E78.5 Hyperlipidemia, unspecified; D50.0 Iron deficiency anemia secondary to blood loss (chronic); F17.210 Nicotine dependence, cigarettes, uncomplicated; F10.20 Alcohol dependence, uncomplicated; F41.9 Anxiety disorder, unspecified; Z90.49 Acquired absence of other specified parts of digestive tract; Z79.899 Other long term (current) drug therapy; Z79.01 Long term (current) use of anticoagulants
CPT/HCPCS: 36415; 36430; 76856; 80053; 82607; 82728; 82746; 83540; 83550; 84443; 84466; 85025; 85045; 85610; 85730; 86850; 86900; 86901; 86920; 87493; 93976; J2060; J3411; J3490; J7050; P9016

== ENCOUNTER 2016-10-27 05:16 | Day surgery (SDC) | payer MEDICAID ==
[2016-10-25 13:09] LABS: APPEARANCE,URINE CLOUDY; BILIRUBIN,URINE NEGATIVE (NEGATIVE); GLUCOSE, URINE NEGATIVE (NEGATIVE); KETONES,URINE NEGATIVE (NEGATIVE); LEUKOCYTE ESTERASE,URINE MODERATE (NEGATIVE); NITRITE,URINE NEGATIVE (NEGATIVE); PROTEIN,URINE 30 mg/dL (NEGATIVE); UROBILINOGEN,URINE NEGATIVE mg/dL (<2.0)
[2016-10-25 13:20] LABS: ANION GAP 12 (5-19); BLOOD UREA NITROGEN 7 mg/dL (7-20); CALCIUM 9.1 mg/dL (8.4-10.2); CARBON DIOXIDE 19 mmol/L (22-30); CHLORIDE 109 mmol/L (98-107); CREATININE RESULT 0.67 mg/dL (0.52-1.25); GLUCOSE 87 mg/dL (75-110); POTASSIUM 4.6 mmol/L (3.6-5.0); SODIUM 140.3 mmol/L (137-145)
[2016-10-25 13:45] LABS: HEMOGLOBIN 13.3 g/dL (12.0-15.5); HGB HCT DIFFERENCE -0.1; MEAN CORPUSCULAR HEMOGLOBIN 32.4 pg (27.0-33.4); MEAN CORPUSCULAR HGB CONC 33.3 g/dL (32.0-36.0); MEAN CORPUSCULAR VOLUME 97 fl (80-97); RED BLOOD COUNT 4.11 10^6/uL (3.72-5.28); RED CELL DISTRIBUTION WIDTH 19.1 % (11.5-14.0); WHITE BLOOD COUNT 6.7 10^3/uL (4.0-10.5)
--- NOTE | 2016-10-25 13:57 | RADIOLOGY REPORT (SQ) ---
EXAM DESCRIPTION: CHEST PA/LATERAL COMPLETED DATE/TIME: 10/25/2016 12:59 pm REASON FOR STUDY: PRE OP COMPARISON: None. EXAM PARAMETERS: NUMBER OF VIEWS: two views TECHNIQUE: Digital Frontal and Lateral radiographic views of the chest acquired. RADIATION DOSE: NA LIMITATIONS: none FINDINGS: LUNGS AND PLEURA: No opacities, masses or pneumothorax. No pleural effusion. MEDIASTINUM AND HILAR STRUCTURES: No masses or contour abnormalities. HEART AND VASCULAR STRUCTURES: Heart normal size. No evidence for failure. BONES: No acute findings. HARDWARE: None in the chest. OTHER: No other significant finding. IMPRESSION: NO SIGNIFICANT RADIOGRAPHIC FINDING IN THE CHEST. TECHNICAL DOCUMENTATION: JOB ID: [id number] [employer]- All Rights Reserved
--- NOTE | 2016-10-25 16:09 | EKG REPORT ---
SEVERITY:- NORMAL ECG - SINUS RHYTHM : Confirmed by: Adina Gaming MD 25-Oct-2016 16:08:28
[~2016-10-27 05:16] MED LIST: RINGERS SOLUTION,LACTATED 1,000 ML IV PRN
[2016-10-27] MEDS ORDERED: CEFAZOLIN 1 GM/D5W RTU 1 GM/50 ML RTUPB IV ONE (05:41)
[2016-10-27] MEDS ORDERED: LIDOCAINE 1% INJ-PF (10 MG/ML) 30 ML SDV ONE (05:43)
[2016-10-27] MEDS ORDERED: MIDAZOLAM 2 MG/2 ML INJ ONE (07:17)
[2016-10-27] MEDS ORDERED: PROPOFOL INJ 200 MG/20 ML VIAL IV ONE (07:17)
[2016-10-27] MEDS ORDERED: FENTANYL CITRATE INJ/PF 100 MCG/2 ML AMPUL ONE (07:17)
[2016-10-27] MEDS ORDERED: MORPHINE SULFATE 10 MG/ML INJ IV PRN (07:39)
[2016-10-27] MEDS ORDERED: FENTANYL CITRATE INJ/PF 100 MCG/2 ML AMPUL IV PRN ×3 (07:39)
[2016-10-27] MEDS ORDERED: PROMETHAZINE HCL INJ 25 MG/1 ML VIAL IV PRN ×2 (07:39)
[2016-10-27] MEDS ORDERED: OXYCODONE-ACETAMINOPHEN 5-325 MG TABLET PO PRN ×3 (07:39→08:03)
[2016-10-27] MEDS ORDERED: MEPERIDINE HCL/PF INJ 25 MG/1 ML DISP.SYRIN IV PRN (07:39)
[2016-10-27] MEDS ORDERED: DIPHENHYDRAMINE HCL 50 MG/ML VIAL IV PRN (07:39)
[2016-10-27] MEDS ORDERED: RINGERS SOLUTION,LACTATED 1,000 ML IV PRN (08:02)
[2016-10-27] MEDS ORDERED: MORPHINE SULFATE 10 MG/ML INJ INJ PRN (08:04)
[2016-10-27] MEDS ORDERED: PROMETHAZINE HCL INJ 25 MG/1 ML VIAL IM PRN (08:05)
[2016-10-27 09:44] VITALS: BP 140/97
--- NOTE | 2016-10-27 10:55 | OPERATIVE REPORT E ---
Operative Report NAME: KEVIN RUCKER : 1975 AGE: 41Y DATE OF SURGERY: 10/27/2016 ROOM: PREOPERATIVE DIAGNOSIS: Menorrhagia. POSTOPERATIVE DIAGNOSIS: Menorrhagia. PROCEDURE: Hysteroscopy with Novasure ablation. SURGEON: CLEMENTINA MCADAMS M.D. COMPLICATIONS: None. ANESTHESIA: L-MAC. FINDINGS: A 6 cm depth uterus, 4.5 cm width, 1 minute 20 second chamberlain performed. Uterine integrity was confirmed pre and post procedure. INDICATIONS FOR PROCEDURE: The patient had abnormal uterine bleeding, unresponsive to usual outpatient management and possibly associated with the use of blood thinners. The patient's biopsies and Pap smears were normal. The usual risks of bleeding, infection, anesthesia, and damage to organs and tissues were discussed and the patient understood. DESCRIPTION OF PROCEDURE: The patient was taken to the operating room and placed in the modified lithotomy position with adequate anesthesia ascertained, prepped and draped in the usual manner for a Novasure hysteroscopy. Uterine measurements were taken. Bladder was left undrained. Cervix was identified. Surgical timeout was performed. Novasure device was deployed after hysteroscopy demonstrated . When the Novasure was fired, hysteroscopy demonstrated approximately 95% with a small amount of apical noted. Instruments were removed. The patient was awakened and taken to recovery room in stable condition. DICTATING PHYSICIAN: CLEMENTINA MCADAMS M.D. [id number] PHY#: [id number] ID: [id number] JOB#: [id number] ACCT: [id number] cc:CLEMENTINA MCADAMS M.D. >
[2016-10-27] MEDS ORDERED: IBUPROFEN 800 MG TABLET PO SCH (14:00)
== END 2016-10-27 09:40 | disposition home or self-care (01) ==
LOC: OROUT 05:16
PROVIDERS: ATTEND Specialist
PROC: 0U5B8ZZ Destruction of Endometrium, Via Natural or Artificial Opening Endoscopic (ICD-10-PCS; principal; 2016-10-27 07:15)
DX: N92.0 Excessive and frequent menstruation with regular cycle (principal); D64.9 Anemia, unspecified; F17.210 Nicotine dependence, cigarettes, uncomplicated; G40.909 Epilepsy, unspecified, not intractable, without status epilepticus; F32.9 Major depressive disorder, single episode, unspecified; Z79.01 Long term (current) use of anticoagulants; Z79.899 Other long term (current) drug therapy; Z79.82 Long term (current) use of aspirin; I69.354 Hemiplegia and hemiparesis following cerebral infarction affecting left non-dominant side
CPT/HCPCS: 93005; 86900; 86901; 36415; 86850; 85027; 81025; 80048; 81001; 71020; 93010; 58563; J2250; J0690; J3010; J2704; 952; J3490

== ENCOUNTER 2017-08-29 11:55 | Emergency (ER) | payer MEDICARE, MEDICAID ==
[2017-08-29] MEDS ORDERED: IBUPROFEN 800 MG TABLET PO ONE (13:21)
--- NOTE | 2017-08-29 13:21 | ER Document Report ---
HPI - HPI Patient complains to provider of: dysuria Pain Level: 5 Context: Patient is a 42-year-old female complaining of 2 days of dysuria, hematuria, urinary frequency and urgency. Patient denies any fever or back pain Associated Symptoms: None Exacerbated by: Denies Relieved by: Denies Similar symptoms previously: Yes Recently seen / treated by doctor: No - ROS ROS below otherwise negative: Yes - CONSTITUTIONAL Constitutional: DENIES: Fever, Chills - URINARY Urinary: REPORTS: Urgency, Frequency - REPRODUCTIVE Reproductive: DENIES: : Past Medical History - General Information source: Patient - Social History Smoking Status: Current Every Day Smoker Frequency of alcohol use: Social Drug Abuse: Marijuana Lives with: Family Family History: Reviewed & Not Pertinent Patient has suicidal ideation: No Patient has homicidal ideation: No - Past Medical History Cardiac Medical History: Denies: Hx Coronary Artery Disease, Hx Heart Attack, Hx Hypertension Pulmonary Medical History: Denies: Hx Asthma, Hx Bronchitis, Hx COPD, Hx Pneumonia Neurological Medical History: Reports: Hx Cerebrovascular Accident - L SIDE WEAKNESS, WALKS WITH CANE, Hx Migraine, Hx Seizures Renal/ Medical History: Denies: Hx Peritoneal Dialysis Musculoskeltal Medical History: Denies Hx Arthritis, Reports Hx Musculoskeletal Deformity - 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 IN LAST 30 DAYS: No - HEENT HEENT: Atraumatic, PERRLA - NECK Neck: Normal Inspection, Supple - RESPIRATORY Respiratory: Breath Sounds Normal, No Respiratory Distress - BACK Back: Normal Inspection. negative: CVA Tenderness-Right, CVA Tenderness-Left Course - Re-evaluation Re-evalutation: 08/29/17 13:17 History and physical are consistent with an uncomplicated urinary tract infection. There are no signs or symptoms of sepsis or dehydration. no abdominal pain or fever, no CVAT 08/29/17 13:22 - Vital Signs Vital signs: Temp Pulse Resp BP Pulse Ox 97.7 F 77 15 115/74 96 08/29/17 12:24 08/29/17 12:24 08/29/17 12:24 08/29/17 12:28 08/29/17 12:24 Discharge - Discharge Clinical Impression: Dysuria Condition: Stable Disposition: HOME, SELF-CARE Instructions: Urinary Tract Infection ([facility]), Antibiotic Therapy ([facility]), Urinary Anesthetic Agent ([facility]) Additional Instructions: Take your medications as prescribed Follow-up with your primary care if symptoms persist Return to emergency department for any worsening of your status Prescriptions: Ciprofloxacin HCl [Cipro 500 mg Tablet] 500 mg PO BID #10 tablet Ibuprofen [Motrin 800 Mg Tablet] 800 mg PO Q6H #20 tablet Phenazopyridine HCl [Pyridium 200 mg Tablet] 200 mg PO TID #15 tablet
[2017-08-29 13:40] VITALS: BP 106/62
[2017-08-29 13:56] LABS: APPEARANCE,URINE SLIGHTLY-CLOUDY; BILIRUBIN,URINE NEGATIVE (NEGATIVE); COLOR,URINE YELLOW; GLUCOSE, URINE NEGATIVE (NEGATIVE); KETONES,URINE NEGATIVE (NEGATIVE); LEUKOCYTE ESTERASE,URINE LARGE (NEGATIVE); NITRITE,URINE NEGATIVE (NEGATIVE); PROTEIN,URINE NEGATIVE (NEGATIVE); URINE SPECIFIC GRAVITY 1.003; UROBILINOGEN,URINE NEGATIVE mg/dL (<2.0)
== END 2017-08-29 13:42 | disposition home or self-care (01) ==
LOC: ER 11:55
DX: R30.0 Dysuria (principal); F17.200 Nicotine dependence, unspecified, uncomplicated; I69.954 Hemiplegia and hemiparesis following unspecified cerebrovascular disease affecting left non-dominant side; Z90.49 Acquired absence of other specified parts of digestive tract
CPT/HCPCS: 99283; 81001; A9270

== ENCOUNTER → 2017-12-31 | Outpatient (CLI) | payer MEDICARE, MEDICAID ==
--- NOTE | 2017-12-31 16:14 | RADIOLOGY REPORT (SQ) ---
EXAM DESCRIPTION: CAROTID DOPPLER COMPLETED DATE/TIME: 12/31/2017 3:50 pm REASON FOR STUDY: CVA I63.9 CEREBRAL INFARCTION, UNSPECIFIED COMPARISON: None. TECHNIQUE: Grayscale ultrasound, Doppler velocity and spectra, and color Doppler images acquired of the extra-cranial carotid and vertebral arteries. Images stored on PACS. LIMITATIONS: None. FINDINGS: RIGHT CAROTID CCA Velocities: Within normal limits. ICA Velocities Peak systolic 0.22 m/s. End diastolic 0.07 m/s. Proximal ICA/CCA peak systolic ratio 0.3. Spectra normal. No significant plaque. LEFT CAROTID CCA Velocities: Within normal limits. ICA Velocities Peak systolic 0.62 m/s. End diastolic 0.27 m/s. Proximal ICA/CCA peak systolic ratio 1.2. Spectra normal. No significant plaque. VERTEBRAL ARTERIES: Antegrade flow. Normal waveforms. SUBCLAVIAN ARTERIES: Not imaged. OTHER: No other significant finding. IMPRESSION: NO HEMODYNAMICALLY SIGNIFICANT STENOSIS. COMMENT: Quality ID #[id number]: Velocity criteria are extrapolated from the diameter data as defined by t he Society of Radiologists in Ultrasound Consensus Conference. Radiology 2003: 229; 340-346. TECHNICAL DOCUMENTATION: JOB ID: [id number] [employer]- All Rights Reserved Reading location - IP/workstation name: [email or web address]
== END ==
LOC: RAD 16:31
PROVIDERS: ATTEND Internal Medicine
DX: I63.9 Cerebral infarction, unspecified (principal)
CPT/HCPCS: 93880